=== PATIENT | male | born 1975 | race Caucasian/White ===

== ENCOUNTER 2021-10-16 09:18 | Outpatient (CLI) | payer BC | END 2021-10-16 09:19 | disposition home or self-care (01) | LOC: CSHMRI 09:18 | PROVIDERS: ATTEND Family Medicine | DX: M24.811 Other specific joint derangements of right shoulder, not elsewhere classified (principal); M25.511 Pain in right shoulder; M75.111 Incomplete rotator cuff tear or rupture of right shoulder, not specified as traumatic; S43.39 Subluxation and dislocation of other parts of shoulder girdle; M19.011 Primary osteoarthritis, right shoulder ==